=== PATIENT | female | born 1980 | race Caucasian/White ===

== ENCOUNTER 2021-10-09 10:08 | Inpatient (IN) | payer BC, OTHER ==
[2021-10-09 11:31] LABS: BASO % 0.7 % (0-2.0); EOS % 0.2 % (0-4.5); HEMOGLOBIN 14.3 GM/dL (10.7-15.3); LYMPH % 15.7 % (8-40); MCHC 34.1 g/dl (32.0-36.0); MEAN CELL VOLUME 91.1 fl (80-96); MEAN PLT VOLUME 8.4 fl (7.5-11.1); MONO % 7.7 % (3.8-10.2); NEUT % 75.7 % (42.8-82.8); PLATELET COUNT 259 10^3/uL (134-434); RBC 4.61 M/mm3 (3.60-5.2); RDW 13.1 % (11.6-15.6); WHITE BLOOD COUNT 10.3 K/mm3 (4.0-10.0)
[2021-10-09 11:32] LABS: PH,URINE 6.5 (5.0-8.0); URINE APPEARANCE CLEAR; URINE BILIRUBIN NEGATIVE (NEGATIVE); URINE COLOR YELLOW; URINE GLUCOSE (UA) NEGATIVE (NEGATIVE); URINE KETONE NEGATIVE (NEGATIVE); URINE LEUK ESTERASE NEGATIVE (NEGATIVE); URINE NITRITE NEGATIVE (NEGATIVE); URINE PROTEIN TRACE (NEGATIVE); URINE UROBILINOGEN 0.2 mg/dL (0.2-1.0)
[2021-10-09 11:45] LABS: ACTIVATED PTT 32.2 SECONDS (25.2-36.5); INR 1.04 (0.83-1.09)
[2021-10-09 11:59] LABS: CALCIUM 9.2 mg/dL (8.5-10.1)
[2021-10-09 12:00] LABS: ALBUMIN 3.9 g/dl (3.4-5.0); BLOOD UREA NITROGEN 11.3 mg/dL (7-18)
[2021-10-09 12:03] LABS: CREATININE 0.6 mg/dL (0.55-1.3)
[2021-10-09 12:04] LABS: BILIRUBIN,TOTAL 0.5 mg/dL (0.2-1); TOT PROT 7.4 g/dl (6.4-8.2)
[2021-10-09 23:22] VITALS: BMI 38.9
[2021-10-10] MEDS ORDERED: LEVOTHYROXINE NA 125 MCG TABLET (FP) PO SCH (07:00)
[2021-10-10] MEDS: LEVOTHYROXINE 112 MCG, LEVOTHYROXINE 25 MCG PO SCH (08:54)
[2021-10-11] MEDS: LEVOTHYROXINE 112 MCG, LEVOTHYROXINE 25 MCG PO SCH (06:14)
[2021-10-11 16:58] LABS: BASO % 0.6 % (0-2.0); EOS % 0.9 % (0-4.5); HEMATOCRIT 37.7 % (32.4-45.2); HEMOGLOBIN 13.1 GM/dL (10.7-15.3); LYMPH % 26.1 % (8-40); MCH 31.3 pg (25.7-33.7); MCHC 34.7 g/dl (32.0-36.0); MEAN CELL VOLUME 90.4 fl (80-96); MEAN PLT VOLUME 8.1 fl (7.5-11.1); MONO % 8.8 % (3.8-10.2); NEUT % 63.6 % (42.8-82.8); PLATELET COUNT 224 10^3/uL (134-434); RBC 4.17 M/mm3 (3.60-5.2); RDW 12.9 % (11.6-15.6); WHITE BLOOD COUNT 8.7 K/mm3 (4.0-10.0)
[2021-10-11 17:15] LABS: INR 1.08 (0.83-1.09); PROTHROMBIN TIME (PATIENT) 12.4 SEC (9.7-13.0)
[2021-10-12] MEDS: LEVOTHYROXINE 112 MCG, LEVOTHYROXINE 25 MCG PO SCH (06:23)
[2021-10-12] MEDS ORDERED: FENTANYL CITRATE/PF 50 MCG/ML VIAL ONE ×6 (13:00→16:21)
[2021-10-12] MEDS ORDERED: PROPOFOL 20 ML ONE ×2 (13:01)
[2021-10-12] MEDS ORDERED: MIDAZOLAM HCL 2 MG/2 ML SINGLE DOSE VIAL ONE (13:01)
[2021-10-12] MEDS ORDERED: ceFAZolin SODIUM 1 GM VIAL IVPB ONE (13:40)
[2021-10-12] MEDS ORDERED: oxyCODONE HCL 5 MG TABLET PO PRN ×3 (14:27→20:25)
[2021-10-12] MEDS ORDERED: ONDANSETRON 4 MG/2 ML VIAL IVPUSH PRN (14:27)
[2021-10-12] MEDS ORDERED: LACTATED RINGERS SOLUTION 1,000 ML IV SCH (14:30)
[2021-10-12] MEDS ORDERED: BUPIVACAINE HCL/PF 0.5% (5 MG/ML) 30 ML VIAL IJ ONE (15:15)
[2021-10-12] MEDS ORDERED: NEOSTIGMINE METHYLSULFATE 0.5 MG/ML - 10 ML MDV ONE (15:19)
[2021-10-12] MEDS ORDERED: BUPIVACAINE HCL/PF 0.5% (5MG/ML) 10 ML VIAL ONE (15:20)
[2021-10-12] MEDS ORDERED: ceFAZolin SODIUM 1 GM VIAL ONE (15:41)
[2021-10-12] MEDS ORDERED: KETOROLAC TROMETHAMINE 30 MG/1 ML VIAL ONE (15:41)
[2021-10-12] MEDS ORDERED: DEXAMETHASONE SOD PHOSPHATE 4 MG/1 ML VIAL ONE (15:41)
[2021-10-12] MEDS ORDERED: GLYCOPYRROLATE 0.2 MG/1 ML VIAL ONE (15:41)
[2021-10-12] MEDS ORDERED: LIDOCAINE HCL/PF 2% SDV 5ML VIAL ONE (15:41)
[2021-10-12] MEDS ORDERED: IBUPROFEN 600 MG TABLET (FP) PO PRN (15:42)
[2021-10-12] MEDS ORDERED: RHO(D) IMMUNE GLOBULIN 1,500 UNIT DISP.SYRIN IM ONE (15:43)
[2021-10-12] MEDS: IBUPROFEN 600 MG TABLET (FP) PO PRN (19:45)
[2021-10-12] MEDS ORDERED: ACETAMINOPHEN 325 MG TABLET (FP) PO PRN (20:24)
[2021-10-13] MEDS: IBUPROFEN 600 MG TABLET (FP) PO PRN ×2 (01:22→06:34)
[2021-10-13] MEDS: LEVOTHYROXINE 112 MCG, LEVOTHYROXINE 25 MCG PO SCH (06:32)
[2021-10-13 12:45] VITALS: BP 112/64; PULSE 78; TEMP 98
== END 2021-10-13 13:20 | disposition home or self-care (01) | DRG 819 ==
LOC: JER 10:08 → JERBED 20:08 → J3W 22:53
PROVIDERS: ADMIT Obstetrics & Gynecology; ATTEND Obstetrics & Gynecology
PROC: 10T24ZZ Resection of Products of Conception, Ectopic, Percutaneous Endoscopic Approach (ICD-10-PCS; principal; 2021-10-12 14:00)
PROC: 10D28ZZ Extraction of Products of Conception, Ectopic, Via Natural or Artificial Opening Endoscopic (ICD-10-PCS; 2021-10-12 14:00)
DX: O00.81 Other ectopic pregnancy with intrauterine pregnancy (principal); D25.9 Leiomyoma of uterus, unspecified
CPT/HCPCS: 0241U-QW; 36415; 72196-TC; 74176-TC; 76817-TC; 76998-TC; 80053; 81003; 84702; 85025; 85610; 85730; 86850; 86900; 86901; 86999; 87086; 88305-TC; 88307-TC; 88331-TC; 93005; 93010; 94760; 99285-25; J1561

== ENCOUNTER 2022-03-01 04:39 | Inpatient (IN) | payer BC, OTHER ==
[2022-02-11 12:15] VITALS: BMI 40.1
[2022-03-01] MEDS ORDERED: BUPIVACAINE HCL/PF 0.5% (5MG/ML) 10 ML VIAL ONE (09:02)
[2022-03-01] MEDS ORDERED: BUPIVACAINE LIPOSOME/PF (EXPAREL) 266 MG/20 ML VIAL ONE (09:02)
[2022-03-01] MEDS ORDERED: MIDAZOLAM HCL 2 MG/2 ML SINGLE DOSE VIAL ONE (09:03)
[2022-03-01] MEDS ORDERED: PROPOFOL 40 ML ONE (09:40)
[2022-03-01] MEDS ORDERED: LIDOCAINE HCL 2% 100 MG/5 ML DISP.SYRIN ONE ×2 (09:41→11:37)
[2022-03-01] MEDS ORDERED: ceFAZolin SODIUM 1 GM VIAL IVPB ONE (09:58)
[2022-03-01] MEDS ORDERED: ROCURONIUM BROMIDE 50 MG/5 ML SYRINGE ONE (10:03)
[2022-03-01] MEDS ORDERED: DEXAMETHASONE SOD PHOSPHATE 4 MG/1 ML VIAL ONE (10:03)
[2022-03-01] MEDS ORDERED: ONDANSETRON 4 MG/2 ML VIAL ONE (10:03)
[2022-03-01] MEDS ORDERED: HYDROmorphone HCl 2 MG/ML VIAL ONE (10:05)
[2022-03-01] MEDS ORDERED: TRANEXAMIC ACID 1000 MG/10 ML VIAL ONE (10:09)
[2022-03-01] MEDS ORDERED: PROPOFOL 20 ML ONE ×3 (10:47→11:14)
[2022-03-01] MEDS ORDERED: MAGNESIUM SULF 50% (8.12 MEQ/2 ML-1 GM VIAL) ONE (10:48)
[2022-03-01] MEDS ORDERED: BENZOIN/ALOE VERA/STORAX/TOLU 58 ML BOTTLE ONE (12:08)
[2022-03-01] MEDS ORDERED: BENZOIN/ALOE VERA/STORAX/TOLU 58 ML BOTTLE TP ONE (12:15)
[2022-03-01] MEDS ORDERED: ONDANSETRON 4 MG/2 ML VIAL IVPUSH PRN (12:32)
[2022-03-01] MEDS ORDERED: ACETAMINOPHEN 1000 MG/100 ML BAG IVPB PRN (12:33)
[2022-03-01] MEDS ORDERED: IBUPROFEN 800 MG/8 ML IJ IVPB ONE (12:51)
[2022-03-01] MEDS: IBUPROFEN 800 MG/8 ML IJ IVPB PRN (17:37)
[2022-03-02] MEDS: IBUPROFEN 800 MG/8 ML IJ IVPB PRN ×2 (03:59→08:59)
[2022-03-02] MEDS: LACTATED RINGERS SOLUTION 1,000 ML IV SCH ×2 (05:56→23:00)
[2022-03-02 06:47] LABS: HEMATOCRIT 34.5 % (32.4-45.2); HEMOGLOBIN 12.2 GM/dL (10.7-15.3); MCH 32.3 pg (25.7-33.7); MCHC 35.3 g/dl (32.0-36.0); MEAN CELL VOLUME 91.6 fl (80-96); MEAN PLT VOLUME 8.2 fl (7.5-11.1); PLATELET COUNT 207 10^3/uL (134-434); RBC 3.76 M/mm3 (3.60-5.2); RDW 13.1 % (11.6-15.6); WHITE BLOOD COUNT 10.4 K/mm3 (4.0-10.0)
[2022-03-02] MEDS ORDERED: ACETAMINOPHEN 325 MG TABLET (FP) PO PRN (09:20)
[2022-03-02] MEDS ORDERED: oxyCODONE HCL 5 MG TABLET PO PRN ×2 (09:20→09:23)
[2022-03-02] MEDS: ENOXAPARIN NA (PORCINE) 40 MG/0.4 ML DISP.SYRIN SQ SCH (10:29)
[2022-03-02] MEDS: IBUPROFEN 600 MG TABLET (FP) PO SCH ×2 (15:56→21:21)
[2022-03-02 21:56] VITALS: RESP 18; TEMP 98.2
[2022-03-03] MEDS: IBUPROFEN 600 MG TABLET (FP) PO SCH ×2 (03:00→09:11)
[2022-03-03] MEDS: ENOXAPARIN NA (PORCINE) 40 MG/0.4 ML DISP.SYRIN SQ SCH (09:10)
[2022-03-03 11:14] VITALS: BP 117/81; PULSE 91
== END 2022-03-03 11:55 | disposition home or self-care (01) | DRG 743 ==
LOC: JASUSAT 04:39 → EDSTATUS 09:00 → J2C 09:00 → J3W 14:57
PROVIDERS: ADMIT Obstetrics & Gynecology; ATTEND Obstetrics & Gynecology
PROC: 0UB10ZZ Excision of Left Ovary, Open Approach (ICD-10-PCS; 2022-03-01)
PROC: 0UB90ZZ Excision of Uterus, Open Approach (ICD-10-PCS; principal; 2022-03-01 09:00)
DX: D25.9 Leiomyoma of uterus, unspecified (principal); N83.202 Unspecified ovarian cyst, left side
CPT/HCPCS: 36415; 81025; 85027; 86850; 86900; 86901; 86922; 88305-TC; 88307-TC; 94010; 94760